=== PATIENT | male | born 1960 | race Caucasian/White ===

== ENCOUNTER → 2020-11-18 | Outpatient (CLI) | payer OTHER ==
[~2020-11-18] MED LIST: TAMIFLU75 MG PO
== END ==
LOC: RAD 12:10
DX: M25.511 Pain in right shoulder (principal); M54.2 Cervicalgia; M47.812 Spondylosis without myelopathy or radiculopathy, cervical region; M19.011 Primary osteoarthritis, right shoulder
CPT/HCPCS: 72050; 73030

== ENCOUNTER → 2020-12-27 | Outpatient (CLI) | payer OTHER | LOC: RAD 10:20 | DX: R05 Cough (principal) | CPT/HCPCS: 71046 ==

== ENCOUNTER → 2021-01-06 | Outpatient (CLI) | payer OTHER | LOC: KOH-I 11:28 | DX: J84.10 Pulmonary fibrosis, unspecified (principal); J98.4 Other disorders of lung | CPT/HCPCS: 71250 ==

== ENCOUNTER → 2021-05-04 | Outpatient (CLI) | payer OTHER | LOC: LAB 12:02 | DX: N40.1 Benign prostatic hyperplasia with lower urinary tract symptoms (principal) | CPT/HCPCS: 36415; 84153 ==